=== PATIENT | male | born 1975 | race Caucasian/White ===

== ENCOUNTER 2016-11-05 12:36 | Emergency (ER) | payer BC ==
[~2016-11-05 12:36] MED LIST: PERCOCET1 TA2 PO; PR25 PO
== END 2016-11-05 13:40 | disposition home or self-care (01) ==
LOC: ER 12:36
PROC: 2W3LX1Z Immobilization of Right Lower Extremity using Splint (ICD-10-PCS; principal; 2016-11-05)
DX: S82.145A Nondisplaced bicondylar fracture of left tibia, initial encounter for closed fracture (principal); Z87.891 Personal history of nicotine dependence; Z79.899 Other long term (current) drug therapy; W20.8XXA Other cause of strike by thrown, projected or falling object, initial encounter
CPT/HCPCS: 73560-RT; 96372; 99283; J1170